=== PATIENT | female | born 1965 | race Caucasian/White ===

== ENCOUNTER 2023-11-14 10:18 | Inpatient (IN) | payer BC ==
[2023-11-14] MEDS: Sodium Chloride 0.9% 1,000 ML IV ONE (11:29)
[2023-11-14] MEDS: Famotidine 20 MG/2 ML SDV IVPUSH ONE (11:30)
[2023-11-14] MEDS: Sodium Chloride 0.9% 2.5 ML Syringe FLUSH PRN (11:30)
[2023-11-14] MEDS: Ondansetron 4 MG/2 ML SDV IVPUSH ONE (11:30)
[2023-11-14] MEDS: Sodium Chloride 0.9% 10 ML Syringe FLUSH PRN (11:30)
[2023-11-14] MEDS: Morphine 4 MG/ML Syringe IVPUSH ONE ×2 (11:30→14:25)
[2023-11-14 11:34] LABS: BASOPHILS ABSOLUTE AUTO 0.06 K/uL (0.00-0.20); BASOPHILS PERCENT AUTO 0.8 % (0.0-1.0); EOSINOPHILS ABSOLUTE AUTO 0.06 K/uL (0.00-0.45); EOSINOPHILS PERCENT AUTO 0.8 % (0.0-6.0); HEMATOCRIT 44.9 % (37.0-47.0); HEMOGLOBIN 19.9 g/dL (12.0-16.0); IMMATURE GRAN ABSOLUTE AUTO 0.03 K/uL (0.00-0.05); IMMATURE GRAN PERCENT AUTO 0.4 % (0.0-0.4); LYMPHOCYTES ABSOLUTE AUTO 1.29 K/uL (1.00-4.80); LYMPHOCYTES PERCENT AUTO 16.2 % (24.0-44.0); MEAN CORPUSCULAR HEMOGLOBIN 36.4 pg (28.0-32.0); MEAN CORPUSCULAR VOLUME 82.1 fL (83.0-99.0); MEAN PLATELET VOLUME 10.7 fL (9.4-12.3); MONOCYTES ABSOLUTE AUTO 0.41 K/uL (0.00-0.80); MONOCYTES PERCENT AUTO 5.2 % (0.0-8.0); NEUTROPHILS ABSOLUTE AUTO 6.09 K/uL (1.80-7.70); NEUTROPHILS PERCENT AUTO 76.6 % (41.0-71.0); PLATELET COUNT,PLT 199 K/uL (150-400); RED BLOOD CELL COUNT 5.47 M/uL (4.10-5.30); WHITE BLOOD CELL COUNT,WBC 7.94 K/uL (3.9-11.3)
[2023-11-14 12:16] LABS: MEAN CORPUSCULAR HGB CONC 44.3 g/dL (32.0-36.0)
[2023-11-14 12:26] LABS: APPEARANCE,URINE CLEAR; BILIRUBIN,URINE NEGATIVE (NEGATIVE); COLOR,URINE YELLOW; GLUCOSE,URINE >=1000 mg/dL (NEGATIVE); KETONES,URINE >=80 mg/dL (NEGATIVE); LEUKOCYTE ESTERASE,URINE NEGATIVE (NEGATIVE); NITRITE,URINE NEGATIVE (NEGATIVE); OCCULT BLOOD,URINE TRACE-INTACT (NEGATIVE); PROTEIN,URINE >=300 mg/dL (NEGATIVE); UROBILINOGEN,URINE 0.2 EU/dL (<2.0)
[2023-11-14 12:39] LABS: BACTERIA,URINE NOT SEEN (NEGATIVE); EPITHELIAL CELLS,URINE FEW (NONE-FEW); RBC,URINE 0-3 (0-2/HPF)
[2023-11-14 13:54] LABS: A/G RATIO 1.1 (0.9-1.6); ALBUMIN 3.7 g/dL (3.4-5.0); BILIRUBIN TOTAL 1.4 mg/dL (0.2-1.0); CARBON DIOXIDE,CO2 21.2 mmol/L (21.0-32.0); CREATININE 0.7 mg/dL (0.6-1.0); EST CRCL DRUG DOSING (CG) 80.01 mL/min; POTASSIUM,K 4.8 mmol/L (3.5-5.1); PROTEIN TOTAL,TP 7.2 g/dL (6.4-8.2)
[2023-11-14] MEDS: Iopamidol 755 MG/ML 500 ML Multipack Bottle IVPUSH STA (14:10)
[2023-11-14 14:44] LABS: CHOLESTEROL HDL 21 mg/dL (40-60); CHOLESTEROL TOTAL 200 mg/dL (50-200)
[2023-11-14 14:45] LABS: TRIGLYCERIDES 1608 mg/dL (0-200)
[2023-11-14] MEDS: Insulin Regular in 0.9 % NACL 100 ML IV SCH (15:24)
[2023-11-14] MEDS: Sodium Chloride 0.9% 1,000 ML IV SCH ×3 (15:30→20:12)
[2023-11-14] MEDS ORDERED: Sodium Chloride 0.9% 10 ML Syringe FLUSH PRN (15:49)
[2023-11-14] MEDS ORDERED: Sodium Chloride 0.9% 2.5 ML Syringe FLUSH PRN (15:49)
[2023-11-14] MEDS ORDERED: Naloxone 0.4 MG/ML SDV IVPUSH PRN (15:49)
[2023-11-14 17:07] LABS: HEMOGLOBIN A1C 9.8 %
[2023-11-14] MEDS: Enoxaparin 40 MG/0.4 ML Syringe SUBCUT SCH (17:08)
[2023-11-14] MEDS: Pantoprazole 40 MG in Sodium Chloride 0.9% 10 ML IVPUSH ONE (17:08)
[2023-11-14] MEDS: Dextrose 5%-0.45% NaCl 1,000 ML IV SCH (17:09)
[2023-11-14 19:17] LABS: CALCIUM 7.2 mg/dL (8.5-10.1); CARBON DIOXIDE,CO2 18.7 mmol/L (21.0-32.0); CREATININE 0.6 mg/dL (0.6-1.0); EST CRCL DRUG DOSING (CG) 93.34 mL/min; POTASSIUM,K 3.8 mmol/L (3.5-5.1)
[2023-11-14] MEDS: Ondansetron 4 MG/2 ML SDV IVPUSH PRN (19:21)
[2023-11-14] MEDS: Potassium Chloride 10 MEQ in Premix Bag 1 BAG IV SCH (19:56)
[2023-11-14] MEDS: HYDROmorphone 0.5 MG/0.5 ML Syringe IVPUSH PRN (23:36)
[2023-11-15 01:03] LABS: CALCIUM 7.4 mg/dL (8.5-10.1); CARBON DIOXIDE,CO2 16.8 mmol/L (21.0-32.0); CREATININE 0.6 mg/dL (0.6-1.0); EST CRCL DRUG DOSING (CG) 93.34 mL/min; POTASSIUM,K 3.3 mmol/L (3.5-5.1)
[2023-11-15] MEDS ORDERED: Potassium Chloride 20 MEQ in Premix Bag 1 BAG IV ONE (01:21)
[2023-11-15] MEDS: Potassium Chloride 10 MEQ in Premix Bag 1 BAG IV SCH (01:45)
[2023-11-15 05:32] LABS: HEMATOCRIT 37.4 % (37.0-47.0); MEAN CORPUSCULAR VOLUME 83.3 fL (83.0-99.0); MEAN PLATELET VOLUME 10.8 fL (9.4-12.3); PLATELET COUNT,PLT 150 K/uL (150-400); RED BLOOD CELL COUNT 4.49 M/uL (4.10-5.30); WHITE BLOOD CELL COUNT,WBC 7.24 K/uL (3.9-11.3)
[2023-11-15 06:06] LABS: HEMOGLOBIN 12.6 g/dL (12.0-16.0); MEAN CORPUSCULAR HGB CONC 33.6 g/dL (32.0-36.0)
[2023-11-15 06:32] LABS: A/G RATIO 0.9 (0.9-1.6); EST CRCL DRUG DOSING (CG) 112.01 mL/min; MAGNESIUM 1.5 mg/dL (1.8-2.4); POTASSIUM,K 3.5 mmol/L (3.5-5.1)
[2023-11-15 06:36] LABS: EOSINOPHILS ABSOLUTE MAN 0.14 K/uL (0.00-0.45); EOSINOPHILS PERCENT MAN 2 % (0-6); LYMPHOCYTES ABSOLUTE MAN 1.88 K/uL (1.00-4.80); LYMPHOCYTES PERCENT MAN 26 % (24-44); MONOCYTES ABSOLUTE MAN 0.51 K/uL (0.00-0.80); MONOCYTES PERCENT MAN 7 % (0-8); SEG NEUTROPHILS ABSOLUTE MAN 4.71 K/uL (1.80-7.70); SEG NEUTROPHILS PERCENT MAN 65 % (41-71)
[2023-11-15 07:26] LABS: ALBUMIN 2.8 g/dL (3.4-5.0); CALCIUM 7.8 mg/dL (8.5-10.1); CARBON DIOXIDE,CO2 23.4 mmol/L (21.0-32.0); CREATININE 0.5 mg/dL (0.6-1.0); PHOSPHORUS 2.2 mg/dL (2.6-4.7); PROTEIN TOTAL,TP 5.9 g/dL (6.4-8.2)
[2023-11-15] MEDS: Magnesium Sulfate/Water 2 GM in Premix Bag 1 BAG IV ONE (08:45)
[2023-11-15] MEDS: D5 1/2 NS w/ 20 mEq/L KCl 1,000 ML IV SCH (09:40)
[2023-11-15] MEDS: Insulin Regular in 0.9 % NACL 100 ML IV SCH (11:05)
[2023-11-15] MEDS: Potassium Phosphates 20 MMOLE in Sodium Chloride 0.9% 250 ML IV ONE (12:41)
[2023-11-15 13:21] LABS: CALCIUM 8.3 mg/dL (8.5-10.1); CARBON DIOXIDE,CO2 27.2 mmol/L (21.0-32.0); CREATININE 0.5 mg/dL (0.6-1.0); EST CRCL DRUG DOSING (CG) 112.01 mL/min; POTASSIUM,K 3.5 mmol/L (3.5-5.1)
[2023-11-15] MEDS: Pantoprazole 40 MG in Sodium Chloride 0.9% 10 ML IVPUSH SCH (16:08)
[2023-11-15] MEDS: Fenofibrate,Micronized 67 MG Cap PO SCH (16:09)
[2023-11-15 18:43] LABS: CALCIUM 8.4 mg/dL (8.5-10.1); CARBON DIOXIDE,CO2 26.4 mmol/L (21.0-32.0); CREATININE 0.6 mg/dL (0.6-1.0); EST CRCL DRUG DOSING (CG) 93.34 mL/min; POTASSIUM,K 3.7 mmol/L (3.5-5.1)
[2023-11-15] MEDS: Rosuvastatin 10 MG Tab PO SCH (20:07)
[2023-11-15] MEDS: Rosuvastatin 10 MG Tab ONE (20:22)
[2023-11-15] MEDS: Acetaminophen 325 MG Tab PO PRN (21:33)
[2023-11-16 00:24] LABS: CALCIUM 8.2 mg/dL (8.5-10.1); CARBON DIOXIDE,CO2 29.3 mmol/L (21.0-32.0); CREATININE 0.5 mg/dL (0.6-1.0); EST CRCL DRUG DOSING (CG) 112.01 mL/min
[2023-11-16] MEDS: Potassium Chloride 100 ML IV SCH (01:30)
[2023-11-16 05:50] LABS: BASOPHILS ABSOLUTE AUTO 0.02 K/uL (0.00-0.20); BASOPHILS PERCENT AUTO 0.4 % (0.0-1.0); EOSINOPHILS ABSOLUTE AUTO 0.09 K/uL (0.00-0.45); EOSINOPHILS PERCENT AUTO 1.6 % (0.0-6.0); HEMATOCRIT 37.3 % (37.0-47.0); HEMOGLOBIN 12.7 g/dL (12.0-16.0); IMMATURE GRAN ABSOLUTE AUTO 0.02 K/uL (0.00-0.05); IMMATURE GRAN PERCENT AUTO 0.4 % (0.0-0.4); LYMPHOCYTES ABSOLUTE AUTO 1.04 K/uL (1.00-4.80); LYMPHOCYTES PERCENT AUTO 18.8 % (24.0-44.0); MEAN CORPUSCULAR HEMOGLOBIN 28.3 pg (28.0-32.0); MEAN CORPUSCULAR VOLUME 83.1 fL (83.0-99.0); MEAN PLATELET VOLUME 10.8 fL (9.4-12.3); MONOCYTES ABSOLUTE AUTO 0.25 K/uL (0.00-0.80); MONOCYTES PERCENT AUTO 4.5 % (0.0-8.0); NEUTROPHILS ABSOLUTE AUTO 4.11 K/uL (1.80-7.70); NEUTROPHILS PERCENT AUTO 74.3 % (41.0-71.0); PLATELET COUNT,PLT 137 K/uL (150-400); RED BLOOD CELL COUNT 4.49 M/uL (4.10-5.30); WHITE BLOOD CELL COUNT,WBC 5.53 K/uL (3.9-11.3)
[2023-11-16 06:12] LABS: CALCIUM 8.4 mg/dL (8.5-10.1); CARBON DIOXIDE,CO2 29.3 mmol/L (21.0-32.0); CREATININE 0.6 mg/dL (0.6-1.0); EST CRCL DRUG DOSING (CG) 93.34 mL/min
[2023-11-16] MEDS: Phosphorus #1 250 MG Tab PO SCH (09:00)
[2023-11-16 12:47] LABS: CALCIUM 8.4 mg/dL (8.5-10.1); CARBON DIOXIDE,CO2 27.2 mmol/L (21.0-32.0); CREATININE 0.6 mg/dL (0.6-1.0); EST CRCL DRUG DOSING (CG) 93.34 mL/min; POTASSIUM,K 4.2 mmol/L (3.5-5.1)
[2023-11-16 18:50] LABS: CALCIUM 8.7 mg/dL (8.5-10.1); CARBON DIOXIDE,CO2 30.8 mmol/L (21.0-32.0); CREATININE 0.7 mg/dL (0.6-1.0); EST CRCL DRUG DOSING (CG) 80.01 mL/min; POTASSIUM,K 3.9 mmol/L (3.5-5.1)
[2023-11-17 06:00] LABS: BASOPHILS ABSOLUTE AUTO 0.02 K/uL (0.00-0.20); BASOPHILS PERCENT AUTO 0.6 % (0.0-1.0); EOSINOPHILS ABSOLUTE AUTO 0.16 K/uL (0.00-0.45); EOSINOPHILS PERCENT AUTO 4.6 % (0.0-6.0); HEMATOCRIT 36.3 % (37.0-47.0); HEMOGLOBIN 12.1 g/dL (12.0-16.0); IMMATURE GRAN ABSOLUTE AUTO 0.02 K/uL (0.00-0.05); IMMATURE GRAN PERCENT AUTO 0.6 % (0.0-0.4); LYMPHOCYTES ABSOLUTE AUTO 0.81 K/uL (1.00-4.80); LYMPHOCYTES PERCENT AUTO 23.2 % (24.0-44.0); MEAN CORPUSCULAR HEMOGLOBIN 28.3 pg (28.0-32.0); MEAN CORPUSCULAR HGB CONC 33.3 g/dL (32.0-36.0); MEAN CORPUSCULAR VOLUME 84.8 fL (83.0-99.0); MEAN PLATELET VOLUME 11.2 fL (9.4-12.3); MONOCYTES ABSOLUTE AUTO 0.18 K/uL (0.00-0.80); MONOCYTES PERCENT AUTO 5.2 % (0.0-8.0); NEUTROPHILS PERCENT AUTO 65.8 % (41.0-71.0); PLATELET COUNT,PLT 113 K/uL (150-400); RED BLOOD CELL COUNT 4.28 M/uL (4.10-5.30); WHITE BLOOD CELL COUNT,WBC 3.49 K/uL (3.9-11.3)
[2023-11-17 06:31] LABS: CALCIUM 8.4 mg/dL (8.5-10.1); CARBON DIOXIDE,CO2 28.7 mmol/L (21.0-32.0); CREATININE 0.5 mg/dL (0.6-1.0); EST CRCL DRUG DOSING (CG) 112.01 mL/min; MAGNESIUM 1.8 mg/dL (1.8-2.4); PHOSPHORUS 3.9 mg/dL (2.6-4.7); POTASSIUM,K 3.8 mmol/L (3.5-5.1)
[2023-11-17] MEDS: Ibuprofen 400 MG Tab PO PRN (11:00)
[2023-11-17] MEDS ORDERED: Glucagon,Human Recombinant 1 MG Vial IM PRN (11:06)
[2023-11-17] MEDS ORDERED: 50% Dextrose in Water 50 ML Syringe IVPUSH PRN (11:06)
[2023-11-17] MEDS: Insulin Aspart 100 Units/ML 3 ML Pen SUBCUT SCH (16:39)
[2023-11-17] MEDS: Insulin Glargine,Hum.Rec.Anlog 100 UNIT/ML 3 ML Pen SUBCUT SCH (20:31)
[2023-11-18 06:50] LABS: BASOPHILS ABSOLUTE AUTO 0.03 K/uL (0.00-0.20); EOSINOPHILS ABSOLUTE AUTO 0.21 K/uL (0.00-0.45); EOSINOPHILS PERCENT AUTO 7.2 % (0.0-6.0); HEMATOCRIT 39.5 % (37.0-47.0); HEMOGLOBIN 13.1 g/dL (12.0-16.0); IMMATURE GRAN ABSOLUTE AUTO 0.01 K/uL (0.00-0.05); IMMATURE GRAN PERCENT AUTO 0.3 % (0.0-0.4); LYMPHOCYTES ABSOLUTE AUTO 1.04 K/uL (1.00-4.80); LYMPHOCYTES PERCENT AUTO 35.9 % (24.0-44.0); MEAN CORPUSCULAR HEMOGLOBIN 28.2 pg (28.0-32.0); MEAN CORPUSCULAR HGB CONC 33.2 g/dL (32.0-36.0); MEAN CORPUSCULAR VOLUME 85.1 fL (83.0-99.0); MEAN PLATELET VOLUME 11.4 fL (9.4-12.3); MONOCYTES ABSOLUTE AUTO 0.29 K/uL (0.00-0.80); NEUTROPHILS ABSOLUTE AUTO 1.32 K/uL (1.80-7.70); NEUTROPHILS PERCENT AUTO 45.6 % (41.0-71.0); PLATELET COUNT,PLT 115 K/uL (150-400); RED BLOOD CELL COUNT 4.64 M/uL (4.10-5.30)
[2023-11-18 07:15] LABS: CALCIUM 9.2 mg/dL (8.5-10.1); CARBON DIOXIDE,CO2 29.7 mmol/L (21.0-32.0); CREATININE 0.6 mg/dL (0.6-1.0); EST CRCL DRUG DOSING (CG) 93.34 mL/min; MAGNESIUM 1.8 mg/dL (1.8-2.4); POTASSIUM,K 3.7 mmol/L (3.5-5.1)
== END 2023-11-18 14:10 | disposition home or self-care (01) | DRG 282 ==
LOC: MW.ED 10:18 → MW.ICU 15:04 → MW.MS 11-17 15:29
PROVIDERS: ADMIT Family Medicine; ATTEND Family Medicine
DX: K85.80 Other acute pancreatitis without necrosis or infection (principal); J96.01 Acute respiratory failure with hypoxia; K76.0 Fatty (change of) liver, not elsewhere classified; I10 Essential (primary) hypertension; E11.65 Type 2 diabetes mellitus with hyperglycemia; E78.1 Pure hyperglyceridemia; K80.20 Calculus of gallbladder without cholecystitis without obstruction; E87.6 Hypokalemia; Z91.040 Latex allergy status; Z88.8 Allergy status to other drugs, medicaments and biological substances; Z90.710 Acquired absence of both cervix and uterus; Z79.899 Other long term (current) drug therapy; Z85.038 Personal history of other malignant neoplasm of large intestine; Z79.4 Long term (current) use of insulin
CPT/HCPCS: 36415; 74177; 74177-26; 76705; 76705-26; 80048; 80053; 80061; 81001; 82947; 83036; 83690; 83735; 84100; 84478; 85025; 96361; 96374; 96375; 96376; 99223; 99232; 99233; 99238; 99284; 99285-25; A9270-GY; J1170; J1650; J1815; J1815-GY; J2270; J2405; J2470; J3475; J3480; J3490; J7030; J7050; J7799; Q9967